=== PATIENT | female | born 1960 | race Caucasian/White ===

== ENCOUNTER → 2016-07-12 | Outpatient (CLI) | payer OTHER ==
[~2016-07-12] MED LIST: ADVAIR INH; ALBUTEROL17 GM INH; ANTIVERT PO; ASPIRIN PO; ASPIRIN81 MG PO; ATENOLOL PO; BACLOFEN10 MG PO; CYMBALTA PO; DICLOFENAC PO; EPIPEN0.3 MG/0.1 IM; FAMOTIDINE PO; FLEXERIL10 M1 PO; FLEXERIL10 MG PO; HYDROCODON-ACE1 EACH PO; KEPPRA100 MG/ML PO; KEPPRA1000 MG PO; KEPPRA750 MG PO; KLONOPIN1 MG PO; LORATADINE PO; LORTAB 10/500 T1 TAB PO; LORTAB 7.5-5001 TAB PO; MUCINEX DM1 TAB.SR . PO; MULTI VITAMIN1 EACH PO; NEXIUM PO; NORCO1 TAB 10/3 PO; OXYCODONE-ACET1 EAC2 PO; OXYCODONE15 MG; PAXIL PO; PAXIL10 MG PO; PHENOBARB PO; PREDNISONE10 MG/DOSE PO; STOOL SOFTENER100 M1 PO; ZITHROMAX1 G/PKT PO; [UNRECOGNIZED DRUG - OTHER] PO
--- NOTE | ~2016-07-12 | CT137 ---
[facility] A Service of [facility] RADIOLOGY TEXT RESULTS PATIENT: FLORY CHÁVEZ LOCATION: [facility] : 56 UNIT #: [id number] AGE: [address]: Radha Pinto MD SEX: F ORDER DR: [id number] [facility]. [place], [place] [address] [id number] O MR#: [id number] Acc #: [id number] NAME: FLORY CHÁVEZ : 1960 SEX: F STUDY DATE/TIME: 07/12/2016 11:07 UNIT: [facility] ROOM: STUDY DESCRIPTION: CT Lung Screening annual Attending Physician: Radha Pinto M.D. Referring Physician: Radha Pinto M.D. Ordering Physician: Radha Pinto M.D. Primary Care Physician: Radha Pinto M.D. MEDICAL IMAGING REPORT This report is preliminary unless electronic signature is present EXAM CT chest without contrast, lung cancer screening HISTORY 56-year-old female with history of 41-pack year total smoking history. Former smoker who quit 1-1/[address] of the chest was performed without contrast using the low dose lung cancer screening protocol. CT dose index 2.[address] exam was performed with one or more of the following radiation dose reduction techniques: automatic exposure control, adjustment of mA and/or kV according to patient size, and iterative reconstruction. COMPARISON 06/14/2015 FINDINGS There is no suspicious pulmonary nodule. No lymphadenopathy or pleural effusion. Limited imaging of the upper abdomen demonstrates a cholecystectomy. The bone windows are unremarkable. IMPRESSION No suspicious pulmonary nodule. ACR Lung-RADS category 1. Follow-up annual low dose lung cancer screening chest CT in one year. Dictated by... Jameson Eugene M.D. [facility] A Service of [facility] RADIOLOGY TEXT RESULTS PATIENT: FLORY CHÁVEZ LOCATION: [facility] : 56 UNIT #: [id number] AGE: [address]: Radha Pinto MD SEX: F ORDER DR: THIS IS AN ELECTRONICALLY VERIFIED REPORT Jameson Eugene M.D. at 07/15/2016 8:04 AM Desiree TD: 07/14/2016 12:58 JOB #: [id number] MEDICAL IMAGING REPORT Page 1 of 1 COPY
== END | disposition home or self-care (01) ==
LOC: CCAT 10:56
DX: Z87.891 Personal history of nicotine dependence (principal)
CPT/HCPCS: G0297